=== PATIENT | female | born 2000 | race Caucasian/White ===

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

== ENCOUNTER 2021-02-15 18:25 | Emergency (ER) | payer MEDICAID ==
[~2021-02-15] VITALS: Ht 172.7 cm; Wt 108.9 kg
[2021-02-15 18:53] VITALS: BP 138/95
--- NOTE | 2021-02-15 18:59 | NUR ---
PT AMBULATED TO BED 3.
--- NOTE | 2021-02-15 19:05 | NUR ---
20 Y/O FEMALE C/O SUPRAPUBIC PAIN 06/13 DESCRIBES SHARP NON-RADIATING TENDER TO TOUCH X1DAY. DENIES FEVER/CHILLS, DENIES N/V, DENIES TRAUMA/INJURY. DENIES DISCHARGE, DENIES DISCHARGE. DENIES PMH ALLERGIES: PINEAPPLE, SHRIMP
--- NOTE | 2021-02-15 19:12 | NUR ---
Dr. Foote at pt bedside for further evaluation.
[2021-02-15] MEDS ORDERED: ACETAMINOPHEN EXTRA STRENGTH 500 MG TAB PO ONE (19:20)
[2021-02-15] MEDS ORDERED: DICYCLOMINE HCL LIQUID 20 MG, ALUMINUM HYD/MAG/SIMETHICONE 30 ML, LIDOCAINE VISCOUS 2% ... PO ONE ×3 (19:20)
--- NOTE | 2021-02-15 19:21 | NUR ---
Gave report to CORTEZ Aguilar, transfer of care at this time.
--- NOTE | 2021-02-15 19:22 | NUR ---
RECEIVED REPORT FROM CORTEZ VILLAREAL FOR CONTINUITY OF CARE
[2021-02-15] MEDS ORDERED: ALUMINUM HYD/MAG/SIMETHICONE 30 ML UDC ONE ×2 (19:25→19:26)
[2021-02-15] MEDS ORDERED: LIDOCAINE VISCOUS 2% 20 ML UDC ONE ×2 (19:25→19:26)
[2021-02-15] MEDS ORDERED: DICYCLOMINE HCL LIQUID 10 MG/5 ML UDC ONE ×2 (19:25→19:26)
[2021-02-15 19:36] LABS: BASOPHILS # (AUTO) 0.1 K/uL (0.00-0.22); BASOPHILS % (AUTO) 0.6 % (0.0-2.0); EOSINOPHILS # (AUTO) 0.1 K/uL (0-0.4); EOSINOPHILS % (AUTO) 1.1 % (0.0-4.0); HEMATOCRIT 42.2 % (36-48); HEMOGLOBIN 14.4 g/dL (12.0-16.0); LYMPHOCYTES # (AUTO) 3.4 K/uL (2.5-16.5); MEAN CORPUSCULAR HEMOGLOBIN 30 pg (27-31); MEAN CORPUSCULAR HGB CONC 34 g/dL (33-37); MEAN CORPUSCULAR VOLUME 87.4 fL (80-94); MONOCYTES # (AUTO) 0.7 K/uL (0.8-1.0); MONOCYTES % (AUTO) 6.9 % (1.7-9.3); NEUTROPHILS % (AUTO) 58.4 % (42.2-75.2); PLATELET COUNT (AUTO) 330 K/uL (140-450); RED BLOOD CELL COUNT(AUTO) 4.83 MIL/uL (4.20-5.40); RED CELL DISTRIBUTION WIDTH 13.7 % (11.6-13.7); WHITE BLOOD COUNT (AUTO) 10.3 K/uL (4.5-11.0)
[2021-02-15 20:01] LABS: ANION GAP 14.3 (8-16); CARBON DIOXIDE 24.2 mmol/L (21-32); CREATININE 0.8 mg/dL (0.6-1.3); POTASSIUM 3.5 mmol/L (3.5-5.1); TOTAL BILIRUBIN 0.3 mg/dL (0.0-1.0)
[2021-02-15] MEDS ORDERED: NITR100C1 PO (20:50)
[2021-02-15 21:14] VITALS: BP 138/95
--- NOTE | 2021-02-15 21:15 | NUR ---
Patient discharged with v/s stable. Written and verbal after care instructions given and explained. Patient alert, oriented and verbalized understanding of instructions. Ambulatory with steady gait. All questions addressed prior to discharge. ID band removed. Patient advised to follow up with PMD. Rx of NITROFURANTOIN given. Patient educated on indication of medication including possible reaction and side effects. Opportunity to ask questions provided and answered.
== END 2021-02-15 21:15 | disposition home or self-care (01) ==
LOC: MED 18:25
DX: N39.0 Urinary tract infection, site not specified (principal); Z91.013 Allergy to seafood; Z91.018 Allergy to other foods; Z79.899 Other long term (current) drug therapy
CPT/HCPCS: 36415; 80053; 81002; 81025; 83690; 85025; 99283

== ENCOUNTER 2021-07-02 14:25 | Emergency (ER) | payer MEDICAID ==
[~2021-07-02] VITALS: Ht 170.2 cm; Wt 72.1 kg
[~2021-07-02 14:25] MED LIST: NITR100C1 PO
[2021-07-02 14:31] VITALS: BP 145/93
--- NOTE | 2021-07-02 14:53 | NUR ---
20 YO BIBS C/O DYSURIA. PATIENT STATES SHE HAD A UTI RECENTLY, S/S WENT AWAY THEN THIS WEEK THE S/S CAME BACK. C/O URINARY BURNING, FREQUENCY, DENIES HEMATURIA. DENIES FEVER, CHILLS, N/V/D. A&OX4, RR EVEN AND UNLABORED. PMH: NONE ALLERGIES: SEAFOOD, PINEAPPLE
--- NOTE | 2021-07-02 14:59 | NUR ---
IDALMIS MARY AT BEDSIDE EVALUATING PT
[2021-07-02 15:37] LABS: APPEARANCE,URINE CLEAR (CLEAR); BILIRUBIN,URINE 2+ (NEGATIVE); BLOOD, URINE TRACE-I (NEGATIVE); COLOR,URINE YELLOW (YELLOW); LEUKOCYTE ESTERASE ,URINE NEGATIVE (NEGATIVE); NITRITE, URINE NEGATIVE (NEGATIVE); PH,URINE 5.5 (5.0-9.0); UGLUCOSE NEGATIVE (NEGATIVE)
[2021-07-02] MEDS ORDERED: PYR100 PO (15:52)
[2021-07-02] MEDS ORDERED: EPIN1KIT31 IM (15:52)
[2021-07-02 15:54] LABS: WBC,URINE 0-5 /HPF (0-5)
[2021-07-02] MEDS ORDERED: NITR100C7 PO (16:01)
--- NOTE | 2021-07-02 16:27 | NUR ---
Patient discharged with v/s stable. Written and verbal after care instructions given and explained. Patient alert, oriented and verbalized understanding of instructions. Ambulatory with steady gait. All questions addressed prior to discharge. ID band removed. Patient advised to follow up with PMD. Rx of EPIPEN, MACROBID,PYRIDIUM given. Patient educated on indication of medication including possible reaction and side effects. Opportunity to ask questions provided and answered.
== END 2021-07-02 16:27 | disposition home or self-care (01) ==
LOC: MED 14:25
DX: N39.0 Urinary tract infection, site not specified (principal); Z79.2 Long term (current) use of antibiotics; Z79.899 Other long term (current) drug therapy; Z91.013 Allergy to seafood; Z91.018 Allergy to other foods
CPT/HCPCS: 81001; 81025; 99283

== ENCOUNTER 2021-08-27 10:47 | Emergency (ER) | payer MEDICAID ==
[~2021-08-27] VITALS: Ht 170.2 cm; Wt 118.4 kg
[~2021-08-27 10:47] MED LIST changes: +EPIN1KIT31 IM; +NITR100C7 PO; +PYR100 PO
[2021-08-27 10:58] VITALS: BP 138/81
--- NOTE | 2021-08-27 11:05 | NUR ---
Patient to wait in lobby, ambulated with steady/even gait
[2021-08-27] MEDS ORDERED: CEPH500C16 PO (11:32)
--- NOTE | 2021-08-27 11:48 | NUR ---
PT SEEN BY DR MYERS, NO NURSING INTERVENTIONS PROVIDED
== END 2021-08-27 11:49 | disposition home or self-care (01) ==
LOC: MED 10:47
DX: K13.0 Diseases of lips (principal); Z79.2 Long term (current) use of antibiotics; Z79.899 Other long term (current) drug therapy; Z91.018 Allergy to other foods; Z91.013 Allergy to seafood
CPT/HCPCS: 99283

== ENCOUNTER 2021-09-09 22:42 | Emergency (ER) | payer MEDICAID ==
[~2021-09-09] VITALS: Ht 170.2 cm; Wt 118.8 kg
[~2021-09-09 22:42] MED LIST changes: +CEPH500C16 PO
[2021-09-09 22:58] VITALS: BP 153/95
[2021-09-10] MEDS ORDERED: LORazepam 0.5 MG TAB PO ONE (00:05)
[2021-09-10] MEDS ORDERED: NACL 0.9% 1,000 ML IV ONE ×2 (00:05→03:35)
[2021-09-10 00:31] LABS: BASOPHILS % (AUTO) 0.3 % (0.0-2.0); EOSINOPHILS # (AUTO) 0.1 K/uL (0-0.4); EOSINOPHILS % (AUTO) 0.8 % (0.0-4.0); HEMATOCRIT 41.5 % (36-48); LYMPHOCYTES # (AUTO) 3.3 K/uL (2.5-16.5); LYMPHOCYTES % (AUTO) 28.8 % (20.5-51.1); MEAN CORPUSCULAR HEMOGLOBIN 29 pg (27-31); MEAN CORPUSCULAR HGB CONC 34 g/dL (33-37); MEAN CORPUSCULAR VOLUME 87.3 fL (80-94); MONOCYTES # (AUTO) 0.7 K/uL (0.8-1.0); MONOCYTES % (AUTO) 6.4 % (1.7-9.3); NEUTROPHILS # (AUTO) 7.4 K/uL (1.8-7.7); NEUTROPHILS % (AUTO) 63.7 % (42.2-75.2); PLATELET COUNT (AUTO) 342 K/uL (140-450); RED BLOOD CELL COUNT(AUTO) 4.75 MIL/uL (4.20-5.40); RED CELL DISTRIBUTION WIDTH 13.3 % (11.6-13.7); WHITE BLOOD COUNT (AUTO) 11.6 K/uL (4.5-11.0)
[2021-09-10 00:49] LABS: ANION GAP 12.1 (8-16); CARBON DIOXIDE 26.6 mmol/L (21-32); CREATININE 0.9 mg/dL (0.6-1.3); POTASSIUM 3.7 mmol/L (3.5-5.1)
[2021-09-10 00:50] LABS: ALBUMIN 3.7 g/dL (3.4-5.0); TOTAL BILIRUBIN 0.3 mg/dL (0.0-1.0)
[2021-09-10 06:27] VITALS: BP 126/76
== END 2021-09-10 06:27 | disposition home or self-care (01) ==
LOC: MED 22:42
DX: R07.9 Chest pain, unspecified (principal); R06.02 Shortness of breath; Z79.899 Other long term (current) drug therapy; Z91.013 Allergy to seafood; Z91.018 Allergy to other foods
CPT/HCPCS: 36415; 71045; 71275; 80048; 80076; 81002; 81025; 83690; 84484; 84702; 85025; 85379; 93005; 93970; 96360; 96361; 99285; J7030; Q0092; Q9967

== ENCOUNTER 2021-11-24 19:06 | Emergency (ER) | payer MEDICAID ==
[~2021-11-24] VITALS: Ht 172.7 cm; Wt 120.2 kg
[2021-11-24 19:08] VITALS: BP 157/94
--- NOTE | 2021-11-24 20:10 | NUR ---
SEEN AND EXAMINED BY PRATIMA
[2021-11-24] MEDS ORDERED: EPIN1KIT31 IM (20:15)
[2021-11-24] MEDS ORDERED: FAMO-90 PO (20:15)
[2021-11-24] MEDS ORDERED: PRED20TA5 PO (20:15)
[2021-11-24] MEDS ORDERED: predniSONE 20 MG TAB PO ONE (20:15)
[2021-11-24] MEDS ORDERED: DIPH25TA53 PO (20:15)
[2021-11-24 21:50] VITALS: BP 153/82
--- NOTE | 2021-11-24 21:50 | NUR ---
Patient discharged with v/s stable. Written and verbal after care instructions given and explained. Patient alert, oriented and verbalized understanding of instructions. Ambulatory with steady gait. All questions addressed prior to discharge. ID band removed. Patient advised to follow up with PMD. Rx of BENADRYL, EPIPEN, PEPCID, DELTASONE given. Patient educated on indication of medication including possible reaction and side effects. Opportunity to ask questions provided and answered.
== END 2021-11-24 21:50 | disposition home or self-care (01) ==
LOC: MED 19:06
DX: T78.1XXA Other adverse food reactions, not elsewhere classified, initial encounter (principal); Z79.899 Other long term (current) drug therapy; Z91.013 Allergy to seafood; Z91.018 Allergy to other foods; X58.XXXA Exposure to other specified factors, initial encounter
CPT/HCPCS: 99283; J7512

== ENCOUNTER 2021-12-03 22:42 | Emergency (ER) | payer MEDICAID ==
[~2021-12-03] VITALS: Ht 81.3 cm; Wt 120.2 kg
[~2021-12-03 22:42] MED LIST changes: +DIPH25TA53 PO; +FAMO-90 PO; +PRED20TA5 PO
[2021-12-03 22:55] VITALS: BP 144/92
--- NOTE | 2021-12-03 23:05 | NUR ---
TO LOBBY FOLLOWING TRIAGE
[2021-12-03] MEDS ORDERED: methylPREDNISolone SS 125 MG in WATER STERILE 2 ML IM ONE (23:50)
[2021-12-04] MEDS ORDERED: WATER STERILE 10 ML MC ONE (00:36)
[2021-12-04] MEDS ORDERED: methylPREDNISolone SS 125 MG/2 ML VIAL ONE (00:37)
--- NOTE | 2021-12-04 00:50 | NUR ---
PT IN [facility]
[2021-12-04] MEDS ORDERED: METH4TAB1 PO (00:58)
== END 2021-12-04 01:01 | disposition home or self-care (01) ==
LOC: MED 22:42
DX: T78.49XA Other allergy, initial encounter (principal); Z79.899 Other long term (current) drug therapy; Z79.2 Long term (current) use of antibiotics; Z91.018 Allergy to other foods; Z91.013 Allergy to seafood; X58.XXXA Exposure to other specified factors, initial encounter
CPT/HCPCS: 96372; 99283; J2930

== ENCOUNTER 2022-01-26 00:06 | Emergency (ER) | payer MEDICAID ==
[~2022-01-26] VITALS: Ht 172.7 cm; Wt 119.7 kg
[~2022-01-26 00:06] MED LIST changes: +METH4TAB1 PO
[2022-01-26 00:17] VITALS: BP 152/92
--- NOTE | 2022-01-26 00:24 | NUR ---
PT AMBULATED TO BED #12
--- NOTE | 2022-01-26 00:44 | NUR ---
Dr. Linares at bedside to exam patient.
[2022-01-26 01:02] VITALS: BP 152/92
--- NOTE | 2022-01-26 01:02 | NUR ---
Patient discharged with v/s stable. Written and verbal after care instructions given and explained. Patient verbalized understanding. Ambulatory with steady gait. All questions addressed prior to discharge. Advised to follow up with PMD.
== END 2022-01-26 01:02 | disposition home or self-care (01) ==
LOC: MED 00:06
DX: Z30.46 Encounter for surveillance of implantable subdermal contraceptive (principal); Z91.018 Allergy to other foods; Z91.013 Allergy to seafood; Z79.899 Other long term (current) drug therapy
CPT/HCPCS: 99281

== ENCOUNTER 2022-05-11 17:43 | Emergency (ER) | payer MEDICAID ==
[~2022-05-11] VITALS: Ht 170.2 cm; Wt 120.2 kg
[2022-05-11 17:46] VITALS: BP 158/95
[2022-05-11] MEDS ORDERED: methylPREDNISolone SS 125 MG in WATER STERILE 2 ML IM ONE (18:05)
--- NOTE | 2022-05-11 18:12 | NUR ---
21/F PRESENTS TO ED WITH C/O ITCHINESS AND TONGUE TINGLING SINCE YESTERDAY, STATES ALLERGY TO SEAFOOD BUT STATES SHE HAS NOT CONSUMED ANY RECENTLY. DENIES SOB, PATIENT SPEAKING IN FULL CLEAR SENTENCES. O2 100% IN TRIAGE.
[2022-05-11] MEDS ORDERED: WATER STERILE 0 ML MC ONE (18:13)
[2022-05-11] MEDS ORDERED: methylPREDNISolone SS 125 MG/2 ML VIAL ONE (18:13)
--- NOTE | 2022-05-11 19:04 | NUR ---
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
[2022-05-11] MEDS ORDERED: PRED20TA5 PO (19:07)
[2022-05-11 19:13] VITALS: BP 158/95
--- NOTE | 2022-05-11 19:14 | NUR ---
Patient discharged with v/s stable. Written and verbal after care instructions ABOUT ALLERGIES given and explained. Patient alert, oriented and verbalized understanding of instructions. Ambulatory with steady gait. All questions addressed prior to discharge. ID band removed. Patient advised to follow up with PMD. Rx of PREDNISONE given. Patient educated on indication of medication including possible reaction and side effects. Opportunity to ask questions provided and answered.
== END 2022-05-11 19:14 | disposition home or self-care (01) ==
LOC: MED 17:43
DX: T78.1XXA Other adverse food reactions, not elsewhere classified, initial encounter (principal); Z91.013 Allergy to seafood; Z91.040 Latex allergy status; Z91.018 Allergy to other foods; X58.XXXA Exposure to other specified factors, initial encounter
CPT/HCPCS: 96372; 99283; J2930

== ENCOUNTER 2022-08-10 11:35 | Emergency (ER) | payer MEDICAID ==
[~2022-08-10] VITALS: Ht 172.7 cm; Wt 121.1 kg
[2022-08-10 11:49] VITALS: BP 143/79
--- NOTE | 2022-08-10 13:13 | NUR ---
Lab at bedside.
[2022-08-10 13:36] LABS: BASOPHILS # (AUTO) 0.1 K/uL (0.00-0.22); BASOPHILS % (AUTO) 0.6 % (0.0-2.0); EOSINOPHILS # (AUTO) 0.1 K/uL (0-0.4); EOSINOPHILS % (AUTO) 0.8 % (0.0-4.0); HEMOGLOBIN 13.9 g/dL (12.0-16.0); LYMPHOCYTES # (AUTO) 2.8 K/uL (2.5-16.5); MEAN CORPUSCULAR HEMOGLOBIN 30 pg (27-31); MEAN CORPUSCULAR HGB CONC 34 g/dL (33-37); MEAN CORPUSCULAR VOLUME 88.4 fL (80-94); MONOCYTES # (AUTO) 0.7 K/uL (0.8-1.0); MONOCYTES % (AUTO) 7.3 % (1.7-9.3); NEUTROPHILS % (AUTO) 62.3 % (42.2-75.2); PLATELET COUNT (AUTO) 303 K/uL (140-450); RED BLOOD CELL COUNT(AUTO) 4.63 MIL/uL (4.20-5.40); RED CELL DISTRIBUTION WIDTH 13.3 % (11.6-13.7)
[2022-08-10 13:38] LABS: APPEARANCE,URINE CLEAR (CLEAR); BILIRUBIN,URINE NEGATIVE (NEGATIVE); BLOOD, URINE TRACE-I (NEGATIVE); COLOR,URINE YELLOW (YELLOW); LEUKOCYTE ESTERASE ,URINE TRACE (NEGATIVE); NITRITE, URINE NEGATIVE (NEGATIVE); UGLUCOSE NEGATIVE (NEGATIVE)
[2022-08-10] MEDS ORDERED: CEPH-588 PO (13:41)
[2022-08-10] MEDS ORDERED: ACET-10509 PO (13:41)
[2022-08-10 13:54] LABS: ALBUMIN 3.5 g/dL (3.4-5.0); ANION GAP 13.1 (8-16); CARBON DIOXIDE 23.9 mmol/L (21-32); CREATININE 0.6 mg/dL (0.6-1.3); TOTAL BILIRUBIN 0.3 mg/dL (0.0-1.0)
[2022-08-10 14:05] LABS: RBC,URINE 0-5 /HPF (0-5); WBC,URINE 0-5 /HPF (0-5)
[2022-08-10 15:10] LABS: WHITE BLOOD COUNT (AUTO) 9.6 K/uL (4.5-11.0)
--- NOTE | 2022-08-10 15:45 | NUR ---
Ultrasound at bedside.
[2022-08-10 17:09] VITALS: BP 160/72
--- NOTE | 2022-08-10 17:09 | NUR ---
Patient discharged with v/s stable. Written and verbal after care instructions given. Patient alert, oriented and verbalized understanding of instructions. Ambulatory with steady gait. All questions addressed prior to discharge. ID band removed. Patient advised to follow up with PMD. Rx of Keflex and Tylenol given. Opportunity to ask questions provided and answered.
--- NOTE | 2022-08-10 17:10 | NUR ---
The patient's care was reviewed and supervised by Nafisa Madison RN.
== END 2022-08-10 17:09 | disposition home or self-care (01) ==
LOC: MED 11:35
DX: N39.0 Urinary tract infection, site not specified (principal); J45.909 Unspecified asthma, uncomplicated; Z91.013 Allergy to seafood; Z91.018 Allergy to other foods; Z91.040 Latex allergy status
CPT/HCPCS: 36415; 76801; 80053; 81001; 81025; 84702; 85025; 99285; Q0092

== ENCOUNTER 2022-09-27 20:12 | Emergency (ER) | payer MEDICAID ==
[~2022-09-27] VITALS: Ht 170.2 cm; Wt 120.2 kg
[~2022-09-27 20:12] MED LIST changes: +ACET-10509 PO; +CEPH-588 PO
[2022-09-27 20:33] VITALS: BP 121/66
--- NOTE | 2022-09-27 20:37 | NUR ---
Patient taken to bed 12 .
--- NOTE | 2022-09-27 21:26 | NUR ---
DR. LEI AT BEDSIDE.
[2022-09-27 21:51] LABS: APPEARANCE,URINE CLEAR (CLEAR); BILIRUBIN,URINE NEGATIVE (NEGATIVE); BLOOD, URINE NEGATIVE (NEGATIVE); COLOR,URINE YELLOW (YELLOW); LEUKOCYTE ESTERASE ,URINE TRACE (NEGATIVE); NITRITE, URINE NEGATIVE (NEGATIVE); UGLUCOSE NEGATIVE (NEGATIVE)
--- NOTE | 2022-09-27 21:51 | NUR ---
Female Siphoner accompanied female patient for Pelvic Exam.
--- NOTE | 2022-09-27 21:51 | NUR ---
SWABS SENT TO LAB
[2022-09-27 21:57] LABS: RBC,URINE 0-5 /HPF (0-5)
[2022-09-28] MEDS ORDERED: NITR100C7 PO (00:13)
[2022-09-28 00:15] VITALS: BP 118/72
== END 2022-09-28 00:15 | disposition home or self-care (01) ==
LOC: MED 20:12
DX: O20.0 Threatened abortion (principal); O23.41 Unspecified infection of urinary tract in pregnancy, first trimester; O99.511 Diseases of the respiratory system complicating pregnancy, first trimester; J45.909 Unspecified asthma, uncomplicated; Z3A.12 12 weeks gestation of pregnancy; Z79.899 Other long term (current) drug therapy; Z79.2 Long term (current) use of antibiotics; Z91.018 Allergy to other foods; Z91.030 Bee allergy status; Z88.8 Allergy status to other drugs, medicaments and biological substances; Z91.013 Allergy to seafood
CPT/HCPCS: 36415; 76801; 81001; 81025; 86886; 86900; 86901; 87086; 87210; 87491; 99284; Q0092

== ENCOUNTER 2022-10-19 09:38 | Emergency (ER) | payer MEDICAID ==
[~2022-10-19] VITALS: Ht 170.2 cm; Wt 118.4 kg
[2022-10-19 09:49] VITALS: BP 133/65
--- NOTE | 2022-10-19 09:55 | NUR ---
PT AMBULATED TO ER BED 6
--- NOTE | 2022-10-19 10:00 | NUR ---
21YO FEMALE PT C/O MIGRAINE HEADACHE X3DAYS. CURRENTLY 16WEEKS PREG ,G1 LMP 06/26/22 TABATHA 04/06/23 . PT STATES SHES UNABLE TO SEE OB DUE TO "POSSIBLE COVID". NOTES INCREASE IN URINE FREQUENCY , S/S TO PREVIOUS UTI. DENIES TAKING MEDICATION, DYSURIA, N/V/D, FEVER , CHILLS, SOB OR CHEST PAIN. PT AAOX4, NO VISIBLE DISTRESS. HOB POSITIONED PER COMFORT HX:DENIES ALLERGIES: IODINE
[2022-10-19 11:32] LABS: APPEARANCE,URINE CLEAR (CLEAR); BILIRUBIN,URINE NEGATIVE (NEGATIVE); BLOOD, URINE NEGATIVE (NEGATIVE); COLOR,URINE YELLOW (YELLOW); LEUKOCYTE ESTERASE ,URINE NEGATIVE (NEGATIVE); NITRITE, URINE NEGATIVE (NEGATIVE); PH,URINE 7.5 (5.0-9.0); UGLUCOSE NEGATIVE (NEGATIVE)
[2022-10-19] MEDS ORDERED: ACETAMINOPHEN EXTRA STRENGTH 500 MG TAB PO ONE (11:40)
[2022-10-19] MEDS ORDERED: BLOOD GLUCOSE MONITORING 1 DEV DEV FS ONE (11:40)
--- NOTE | 2022-10-19 11:58 | NUR ---
pt swabbed for covid(kathleen). handed to lab
[2022-10-19] MEDS ORDERED: ACET-10509 PO (12:41)
[2022-10-19 13:03] VITALS: BP 128/68
--- NOTE | 2022-10-19 13:03 | NUR ---
Patient discharged with v/s stable. Written and verbal after care instructions given and explained. Patient alert, oriented and verbalized understanding of instructions. Ambulatory with steady gait. All questions addressed prior to discharge. ID band removed. Patient advised to follow up with PMD. Rx of ACETAMINOPHEN given. Opportunity to ask questions provided and answered.
--- NOTE | 2022-10-19 13:04 | NUR ---
The patient's care was reviewed and supervised by Nafisa Madison RN.
== END 2022-10-19 13:03 | disposition home or self-care (01) ==
LOC: MED 09:38
DX: O26.892 Other specified pregnancy related conditions, second trimester (principal); Z20.822 Contact with and (suspected) exposure to COVID-19; R51.9 Headache, unspecified; Z3A.16 16 weeks gestation of pregnancy; Z79.899 Other long term (current) drug therapy; Z88.8 Allergy status to other drugs, medicaments and biological substances; Z91.018 Allergy to other foods; Z91.013 Allergy to seafood
CPT/HCPCS: 81003; 81025; 99285

== ENCOUNTER 2023-01-03 16:45 | Observation (INO) | payer MEDICAID ==
[~2023-01-03] VITALS: Ht 170.2 cm; Wt 121.1 kg
[2023-01-03 18:00] VITALS: BP 125/64
== END 2023-01-03 21:35 | disposition home or self-care (01) ==
LOC: MLD 16:45
PROVIDERS: ADMIT Obstetrics & Gynecology; ATTEND Obstetrics & Gynecology
DX: O26.892 Other specified pregnancy related conditions, second trimester (principal); Z20.822 Contact with and (suspected) exposure to COVID-19; R10.9 Unspecified abdominal pain; O35.8XX0 Maternal care for other (suspected) fetal abnormality and damage, not applicable or unspecified; Z3A.27 27 weeks gestation of pregnancy; W01.0XXA Fall on same level from slipping, tripping and stumbling without subsequent striking against object, initial encounter; Y93.89 Activity, other specified; Y92.89 Other specified places as the place of occurrence of the external cause
CPT/HCPCS: 36415; 76805; 85384; 86886; 86900; 86901; 87426; G0378; Q0092

== ENCOUNTER 2023-10-14 15:05 | Emergency (ER) | payer MEDICAID ==
[~2023-10-14] VITALS: Ht 157.5 cm; Wt 90.7 kg
[2023-10-14 15:24] VITALS: BP 140/94; PULSE 86; RESP 18; TEMP 99; O2SAT 98
[2023-10-14 15:49] LABS: BASOPHILS % (AUTO) 0.2 % (0.0-2.0); EOSINOPHILS # (AUTO) 0.1 K/uL (0-0.4); EOSINOPHILS % (AUTO) 0.6 % (0.0-4.0); HEMATOCRIT 38.3 % (36-48); HEMOGLOBIN 12.9 g/dL (12.0-16.0); LYMPHOCYTES # (AUTO) 2.6 K/uL (2.5-16.5); LYMPHOCYTES % (AUTO) 23.1 % (20.5-51.1); MEAN CORPUSCULAR HEMOGLOBIN 29 pg (27-31); MEAN CORPUSCULAR HGB CONC 34 g/dL (33-37); MEAN CORPUSCULAR VOLUME 87.2 fL (80-94); MONOCYTES % (AUTO) 8.4 % (1.7-9.3); NEUTROPHILS # (AUTO) 7.7 K/uL (1.8-7.7); NEUTROPHILS % (AUTO) 67.7 % (42.2-75.2); PLATELET COUNT (AUTO) 266 K/uL (140-450); RED BLOOD CELL COUNT(AUTO) 4.39 MIL/uL (4.20-5.40); RED CELL DISTRIBUTION WIDTH 13.2 % (11.6-13.7); WHITE BLOOD COUNT (AUTO) 11.4 K/uL (4.8-10.8)
[2023-10-14 16:02] LABS: ALBUMIN 2.9 g/dL (3.4-5.0); ANION GAP 12.2 (8-16); CALCIUM 8.5 mg/dL (8.5-10.1); CARBON DIOXIDE 24.6 mmol/L (21-32); CREATININE 0.9 mg/dL (0.6-1.3); POTASSIUM 3.8 mmol/L (3.5-5.1); TOTAL BILIRUBIN 0.3 mg/dL (0.0-1.0); TOTAL PROTEIN, SERUM 7.2 g/dL (6.4-8.2)
[2023-10-14 16:13] LABS: APPEARANCE,URINE CLEAR (CLEAR); BILIRUBIN,URINE NEGATIVE (NEGATIVE); BLOOD, URINE TRACE-I (NEGATIVE); COLOR,URINE YELLOW (YELLOW); LEUKOCYTE ESTERASE ,URINE NEGATIVE (NEGATIVE); NITRITE, URINE NEGATIVE (NEGATIVE); PROTEIN,URINE NEGATIVE (NEGATIVE); UGLUCOSE NEGATIVE (NEGATIVE); UROBILINOGEN,URINE 0.2 EU/dL (0.2 - 1)
[2023-10-14] MEDS ORDERED: PREN-564 PO (17:58)
== END 2023-10-14 18:20 | disposition home or self-care (01) ==
LOC: MED 15:05
DX: O26.891 Other specified pregnancy related conditions, first trimester (principal); R10.2 Pelvic and perineal pain; Z3A.01 Less than 8 weeks gestation of pregnancy
CPT/HCPCS: 36415; 76801; 80053; 81003; 81025; 83690; 84702; 85025; 99284

== ENCOUNTER 2023-11-04 00:29 | Emergency (ER) | payer MEDICAID ==
[~2023-11-04] VITALS: Ht 170.2 cm; Wt 121.1 kg
[~2023-11-04 00:29] MED LIST changes: -ACET-10509 PO; -CEPH-588 PO; -CEPH500C16 PO; -DIPH25TA53 PO; -EPIN1KIT31 IM; -FAMO-90 PO; -METH4TAB1 PO; -NITR100C1 PO; -NITR100C7 PO; -PRED20TA5 PO; +PREN-564 PO; -PYR100 PO
[2023-11-04 00:40] VITALS: BP 145/80; PULSE 110; RESP 18; TEMP 98.1; O2SAT 95
[2023-11-04 02:51] LABS: APPEARANCE,URINE CLEAR (CLEAR); BILIRUBIN,URINE NEGATIVE (NEGATIVE); BLOOD, URINE NEGATIVE (NEGATIVE); COLOR,URINE YELLOW (YELLOW); LEUKOCYTE ESTERASE ,URINE TRACE (NEGATIVE); NITRITE, URINE NEGATIVE (NEGATIVE); PROTEIN,URINE NEGATIVE (NEGATIVE); UGLUCOSE NEGATIVE (NEGATIVE); UROBILINOGEN,URINE 0.2 EU/dL (0.2 - 1)
[2023-11-04 02:53] LABS: BACTERIA,URINE 10-30 (MOD) /HPF (None Seen); MUCUS,URINE 1+ /LPF (None Seen); RBC,URINE 0-5 /HPF (0-5); SQUAMOUS EPITHELIAL CELL,UR 0-3 (FEW) /LPF (0-3 (FEW))
[2023-11-04] MEDS ORDERED: ACET-10509 PO (03:15)
[2023-11-04] MEDS ORDERED: NITR100C7 PO (03:15)
[2023-11-04 03:29] VITALS: BP 145/80; PULSE 99; RESP 18; TEMP 98.1; O2SAT 95
== END 2023-11-04 03:29 | disposition home or self-care (01) ==
LOC: MED 00:29
DX: O26.892 Other specified pregnancy related conditions, second trimester (principal); R11.2 Nausea with vomiting, unspecified; R19.7 Diarrhea, unspecified; Z91.018 Allergy to other foods; Z3A.13 13 weeks gestation of pregnancy
CPT/HCPCS: 81001; 81025; 87086; 99284

== ENCOUNTER 2024-07-10 20:04 | Emergency (ER) | payer MEDICAID ==
[~2024-07-10] VITALS: Ht 170.2 cm; Wt 120.2 kg
[~2024-07-10 20:04] MED LIST changes: +ACET500T99 PO; +NITR100C7 PO
[2024-07-10 20:28] VITALS: BP 129/78; PULSE 106; RESP 18; TEMP 98.4; O2SAT 98
[2024-07-10 21:23] LABS: BILIRUBIN,URINE NEGATIVE (NEGATIVE); BLOOD, URINE TRACE-L (NEGATIVE); COLOR,URINE YELLOW (YELLOW); LEUKOCYTE ESTERASE ,URINE TRACE (NEGATIVE); NITRITE, URINE NEGATIVE (NEGATIVE); PROTEIN,URINE NEGATIVE (NEGATIVE); UGLUCOSE NEGATIVE (NEGATIVE); UROBILINOGEN,URINE 0.2 EU/dL (0.2 - 1)
[2024-07-10] MEDS: DEXAMETHASONE 10 MG/ML VIAL IM ONE (21:23)
[2024-07-10] MEDS: LIDOCAINE 5% 1 EA PATCH TP ONE (21:24)
[2024-07-10] MEDS: KETOROLAC 30 MG/ML VIAL IM ONE (21:24)
[2024-07-10 21:29] LABS: APPEARANCE,URINE CLOUDY (CLEAR)
[2024-07-10] MEDS ORDERED: NAPR-1704 PO (21:33)
[2024-07-10] MEDS ORDERED: LID5T TP (21:33)
[2024-07-10] MEDS ORDERED: CYCL-711 PO (21:33)
[2024-07-10 21:36] LABS: BACTERIA,URINE 4+ /HPF (None Seen)
[2024-07-10 21:37] LABS: HYALINE CASTS, URINE 0-10 /LPF (None Seen); MUCUS,URINE 3+ /LPF (None Seen)
== END 2024-07-10 21:38 | disposition home or self-care (01) ==
LOC: MED 20:04
DX: S39.012A Strain of muscle, fascia and tendon of lower back, initial encounter (principal); Z79.899 Other long term (current) drug therapy; Z88.5 Allergy status to narcotic agent; Z91.013 Allergy to seafood; Z91.030 Bee allergy status; Z88.8 Allergy status to other drugs, medicaments and biological substances; X58.XXXA Exposure to other specified factors, initial encounter; Y93.89 Activity, other specified; Y92.89 Other specified places as the place of occurrence of the external cause; Y99.8 Other external cause status
CPT/HCPCS: 81001; 81025; 87086; 96372; 99284; J1100; J1885